=== PATIENT | female | born 1995 | race Caucasian/White ===

== ENCOUNTER 2017-12-26 01:49 | Emergency (ER) | payer SELFPAY ==
[~2017-12-26] VITALS: Ht 170.2 cm; Wt 87.1 kg
[2017-12-26 01:49] VITALS: BP 97/51
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
--- NOTE | 2017-12-26 01:49 | NUR ---
PATIENT BIB [facility] TO ER CHAIR Brittany
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
[2017-12-26] MEDS ORDERED: IBUPROFEN 800 MG TAB PO ONE (01:55)
[2017-12-26] MEDS ORDERED: IBUPROFEN 800 MG TAB ONE (02:15)
--- NOTE | 2017-12-26 02:25 | NUR ---
PATIENT BIB [facility]. PATIENT EXAMINED BY DR. MCKEON. PATIENT MEDICALLY CLEARED AND RELEASED IN CUSTODY IN STABLE CONDITION. ORIGINAL PRE-BOOK FORM GIVEN TO OFFICER ADITHYA. Patient discharged with v/s stable. Written and verbal after care instructions given and explained. Patient verbalized understanding. Ambulatory with in custody. All questions addressed prior to discharge. Advised to follow up with PMD.
[2017-12-26 02:30] VITALS: BP 135/53
== END 2017-12-26 02:25 | disposition home or self-care (01) ==
LOC: MED 01:49
DX: R07.89 Other chest pain (principal); M25.562 Pain in left knee; Z02.89 Encounter for other administrative examinations; V89.2XXA Person injured in unspecified motor-vehicle accident, traffic, initial encounter; Y93.89 Activity, other specified; Y92.89 Other specified places as the place of occurrence of the external cause; Y99.8 Other external cause status
CPT/HCPCS: 99283